=== PATIENT | male | born 1990 | race Two or more races ===

== ENCOUNTER 2021-11-26 10:28 | Emergency (ER) | payer OTHER ==
[~2021-11-26] VITALS: Ht 170.2 cm; Wt 90.9 kg
[2021-11-26 12:12] VITALS: BP 131/80
== END 2021-11-26 12:13 | disposition home or self-care (01) ==
LOC: EMS 10:31
DX: S21.102A Unspecified open wound of left front wall of thorax without penetration into thoracic cavity, initial encounter (principal); F10.20 Alcohol dependence, uncomplicated; X58.XXXA Exposure to other specified factors, initial encounter; Y93.89 Activity, other specified; Y92.89 Other specified places as the place of occurrence of the external cause; Y99.8 Other external cause status
CPT/HCPCS: 99283; Z7502